=== PATIENT | male | born 1950 | race Caucasian/White ===

== ENCOUNTER → 2017-04-07 | Day surgery (SDC) | payer OTHER ==
[~2017-04-07] VITALS: Ht 193 cm; Wt 124.3 kg
[~2017-04-07] MED LIST: /ESOM40CA OR; /WARF25TA OR; ACET65TA OR; ALL10TAB27 PO; AMLO10TA2 PO; ANDR1.62 SUBD; ASPI81TA83 OR; ATOR1TAB21 PO; AZEL0.055; CEPACOL PO; CETI10TA OR; CIAL20TA PO; CIAL5TAB PO; FISH1000 OR; FLON0.05; HYZAAR PO; KETOROLAC 60 MG/2 ML VIAL (J1885) As Ordered ONE; LIDOCAINE 2% INJ 100 MG/5 ML SDV (FOR ANES.) As Ordered ONE; LOSA100T PO; LR 1,000 ML IV ONE; LR 1,000 ML IV SCH; LR 500 ML IV SCH; METF500T PO; METOCLOPRAMIDE INJ 10MG/2ML VIAL (J2765) IV PRN; MIDAZOLAM INJ 2 MG/2 ML VIAL (J2250) As Ordered ONE; MULT1TAB10 PO; MULTIVIT PO; NAPR500T PO; NORCO, ANEXSIA 5/325MG TABLET (HYDROcodone/ACETAMINOPHEN) PO PRN; OMEP40CA2 PO; ONDANSETRON 4MG/2ML VIAL (J2405) As Ordered ONE; ONDANSETRON 4MG/2ML VIAL (J2405) IV PRN; PERCOCET 5MG/325MG TAB PO PRN; POTA20TA2 OR; PROPOFOL 200 MG/20 ML VIAL As Ordered ONE; ROPIvacaine 0.5% 30 ML INJECTION (J2795) As Ordered ONE; ROSU10TA OR; TRAM50TA2 OR; TUMS500C OR; VITA400C OR; ePHEDrine SULFATE 25 MG/5 ML(5MG/ML) SYRINGE As Ordered ONE; fentaNYL 100 MCG/2 ML INJECTION (J3010) As Ordered ONE; fentaNYL 100 MCG/2 ML INJECTION (J3010) IV PRN
[2017-04-07 18:40] VITALS: BP 145/70
--- NOTE | 2017-04-08 07:11 | RO ---
DATE OF PROCEDURE: 04/07/2017 PREOPERATIVE DIAGNOSES: Left knee osteoarthritis, medial meniscus tear. POSTOPERATIVE DIAGNOSES: Left knee osteoarthritis, medial meniscus tear, lateral meniscus tear, and loose body in the notch. OPERATIVE PROCEDURE: Excision of 6 mm loose body from the notch and partial medial and lateral meniscectomy, joint debridement. SURGEON: Jose Tucker MD PHYSICIAN GYNECOLOGIST: ANESTHESIA: Spinal. ESTIMATED BLOOD LOSS: Minimal. COMPLICATIONS: None. INDICATION: 67-year-old gentleman who has had some persistent knee pain. MRI scan was consistent with a medial meniscus tear and some arthritis. He wished to go ahead with arthroscopic treatment, having failed conservative management. He understood the nature of procedure, risks of bleeding, infection, damage to nerves, vessels, persistent pain, blood clots, among others. He understood that we would not be able to significantly affect is arthritis. He understood the nature of the risks, bleeding, infection, damage to nerves, vessels, persistent pain, blood clots, medical problems, among others. DESCRIPTION OF PROCEDURE: The patient taken to the operating room and placed in supine position after spinal anesthesia was induced. Left lower extremity was prepped and draped in the usual sterile fashion. I then created inferomedial and anterolateral portals after a time-out was performed. The patellofemoral joint was identified. He did have some grade 2 to 3 changes in his trochlea and grade 2 changes on his patella. I proceeded down both gutters, and the medial compartment of the medial meniscus had a complex posterior medial meniscus tear that was resected with a combination of basket punch, 4.2 shaver, back to a stable rim. I also smoothed off any loose flaps on the medial femoral condyle where there was some grade 2 to 3 changes. The notch was identified. The ACL appeared to be unremarkable, although there was a loose body, 6 mm in diameter, that was just adjacent to the ACL and this was retrieved using pituitary. I then proceeded to the lateral compartment and there was a central lateral meniscus tear, but the articular cartilage was more well-preserved. I removed the tear with the shaver. Proceeded back to the patellofemoral joint; removed any thickened plica, irrigated the knee copiously, reexamined the entire joint and removed the instrumentation. Closed the portals with #4-0 nylon suture and injected 30 mL of Naropin and a sterile dressing was applied. Tourniquet was deflated and he taken to recovery room in stable condition. There were no known complications. PLAN: The plan will be routine postop.
== END | disposition home or self-care (01) ==
LOC: M SDC 11:18
PROVIDERS: ATTEND Orthopaedic Surgery
DX: M17.12 Unilateral primary osteoarthritis, left knee (principal); M23.222 Derangement of posterior horn of medial meniscus due to old tear or injury, left knee; M23.262 Derangement of other lateral meniscus due to old tear or injury, left knee; M23.42 Loose body in knee, left knee; E10.9 Type 1 diabetes mellitus without complications; I10 Essential (primary) hypertension; I71.4 Abdominal aortic aneurysm, without rupture; R35.0 Frequency of micturition; I25.10 Atherosclerotic heart disease of native coronary artery without angina pectoris; E78.00 Pure hypercholesterolemia, unspecified; E04.1 Nontoxic single thyroid nodule; K21.9 Gastro-esophageal reflux disease without esophagitis; G47.33 Obstructive sleep apnea (adult) (pediatric); J30.2 Other seasonal allergic rhinitis; Z91.048 Other nonmedicinal substance allergy status; Z79.899 Other long term (current) drug therapy; Z79.4 Long term (current) use of insulin; Z79.84 Long term (current) use of oral hypoglycemic drugs; Z96.651 Presence of right artificial knee joint
CPT/HCPCS: 29880; J0690; J1885; J2250; J2405; J2795; J3010

== ENCOUNTER → 2017-08-07 | Outpatient (CLI) | payer OTHER ==
[~2017-08-07] MED LIST changes: -KETOROLAC 60 MG/2 ML VIAL (J1885) As Ordered ONE; -LIDOCAINE 2% INJ 100 MG/5 ML SDV (FOR ANES.) As Ordered ONE; -LOSA100T PO; +LOSA100T8 PO; -LR 1,000 ML IV ONE; -LR 1,000 ML IV SCH; -LR 500 ML IV SCH; -METF500T PO; +METF500T13 PO; -METOCLOPRAMIDE INJ 10MG/2ML VIAL (J2765) IV PRN; -MIDAZOLAM INJ 2 MG/2 ML VIAL (J2250) As Ordered ONE; -NORCO, ANEXSIA 5/325MG TABLET (HYDROcodone/ACETAMINOPHEN) PO PRN; -ONDANSETRON 4MG/2ML VIAL (J2405) As Ordered ONE; -ONDANSETRON 4MG/2ML VIAL (J2405) IV PRN; -PERCOCET 5MG/325MG TAB PO PRN; -PROPOFOL 200 MG/20 ML VIAL As Ordered ONE; -ROPIvacaine 0.5% 30 ML INJECTION (J2795) As Ordered ONE; -ePHEDrine SULFATE 25 MG/5 ML(5MG/ML) SYRINGE As Ordered ONE; -fentaNYL 100 MCG/2 ML INJECTION (J3010) As Ordered ONE; -fentaNYL 100 MCG/2 ML INJECTION (J3010) IV PRN
--- NOTE | 2017-08-08 20:50 | SLEEPCENT ---
DATE OF PROCEDURE: 08/07/2017 ORDERED BY: Lizeth Rust Nocturnal polysomnography was performed for re-titration of pressure therapy in this patient with difficulty in sleep maintenance and excessive somnolence. For testing, a ResMed Quattro Air full face mask of large size was used, 14 cm of pressure were applied to the circuit and the lights were extinguished. 8 hours and 13 minutes of data were reviewed. There were 282 minutes of sleep identified. Sleep latency was prolonged at 35 minutes, rapid eye movement (REM) latency was normal at 82 minutes. Sleep architecture was fair; it became worse late in the test on bilevel therapy. Overall sleep efficiency was reduced at 57.9%. EKG showed a sinus rhythm with an average heart rate of 56 beats per minute. EEG showed normal waveforms for awake and sleep stages. Respiratory events were fully palliated with continuous positive airway pressure (CPAP) at a pressure of 14. A trial of bilevel positive airway pressure (BiPAP) was performed after 1:00 a.m. in light of some spontaneous arousals. Snoring was seen and spontaneous arousals persisted. Best sleep was seen on a CPAP pressure of 14. There was some limb activity but only one train of 30 events. Limb movement arousal index was borderline at 6. IMPRESSION: Obstructive sleep apnea syndrome (G47.33). RECOMMENDATION: Continued use of CPAP at a pressure of 14 is sufficient to address the patient's respiratory events.
== END ==
LOC: M SLEEP 19:31
PROVIDERS: ATTEND Nurse Practitioner Adult Health
DX: G47.33 Obstructive sleep apnea (adult) (pediatric) (principal)

== ENCOUNTER 2019-04-03 05:42 | Inpatient (IN) | payer MEDICARE, OTHER ==
--- NOTE | 2019-03-19 14:28 | HPE ---
DATE OF ADMISSION: 04/03/2019 ATTENDING PHYSICIAN: Dr. Jose Tucker CHIEF COMPLAINT: Left knee pain and stiffness. HISTORY: This is a pleasant 69-year-old male patient with progressively worsening left knee pain and stiffness. He has failed to improve with conservative management to include injections in his knee. He has pain with weightbearing activities and activities of daily living. X-rays are notable for end-stage degenerative changes of the left knee. Medical optimization pending with his primary doctor, Dr. Mauricio. ALLERGIES: No known drug allergies. Does have difficulties with adhesives. MEDICATIONS: He currently takes metformin 500 mg 1 tablet twice a day, Losartan 25 mg 1 tablet once per day, aspirin 81 mg 1 tablet once per day, multivitamin, amlodipine 10 mg 1 tablet once a day, Cialis 5 mg as directed, atorvastatin 10 mg 1 tablet once per day, Nexium 1 tablet once per day. MEDICAL HISTORY: Includes symptomatic osteoarthritis of the left knee, type 2 diabetes, high blood pressure, and gastric reflux disease. PAST SURGICAL HISTORY: He has had prior lumbar surgery. He has had a right total knee arthroplasty and bilateral knee scopes. FAMILY HISTORY: Hypertension, diabetes, cancer and heart disease. SOCIAL HISTORY: Does not currently smoke. He does use alcohol. He is retired. REVIEW OF SYSTEMS: Denies fever or chills. Denies chest pain, shortness breath or cough. Denies difficulty breathing. Denies abdominal pain. Denies nausea or vomiting. Denies recent upper respiratory infection (URI) or urinary tract infection (UTI) symptoms. Notes persistent pain in the left knee with weightbearing activities. PHYSICAL EXAMINATION: Today reveals an alert, well-nourished, well-developed male patient who ambulates without assist devices. Mood and affect appropriate. He sits comfortably on the exam room table. Neck is supple without adenopathy or jugular venous distention (JVD). Lungs are clear to auscultation without rales or wheeze. Heart: Regular rate and rhythm. Abdomen: Bowel sounds are present. Examination of the left knee reveals the skin to be intact. No erythema, edema or ecchymosis. There is near full range of motion of the knee with irritability at the extremes of range of motion. Stable to varus and valgus stress. The calf is soft and nontender to palpation. He can sensate light touch. LABORATORY DATA: None collected as he had recent blood work and a workup done in November, pending per his primary requests. IMPRESSION: Symptomatic osteoarthritis of the left knee. PLAN: He has consented for a left total knee arthroplasty by Dr. Tucker using the Attune knee rotating platform cruciate retaining. DELILAH
[~2019-04-03] VITALS: Ht 195.6 cm; Wt 120.2 kg
[~2019-04-03 05:42] MED LIST changes: -/ESOM40CA OR; -/WARF25TA OR; -ALL10TAB27 PO; +ALL10TAB28 PO; -AMLO10TA2 PO; +AMLO10TA5 PO; +COUM1TAB18 OR; +CRES10TA32 OR; +MULTCAP PO; +NAPR-837 PO; -NAPR500T PO; +NEXI1CAP3 OR; -ROSU10TA OR
[2019-04-03] MEDS ORDERED: LIDOCAINE 1% MDV 20ML VIAL SQ PRN (06:00)
[2019-04-03] MEDS ORDERED: ceFAZolin SOD 1 GM in D5W MINI-BAG PLUS 50 ML IV ONE (06:00)
[2019-04-03] MEDS ORDERED: LR 1,000 ML IV SCH ×2 (06:00→10:00)
[2019-04-03 06:40] LABS: HEMATOCRIT 45.6 % (42.0-52.0); HEMOGLOBIN 15.4 g/dl (13.5-17.5); MEAN CORPUSCULAR HEMOGLOBIN 29.7 pg (27.0-33.0); MEAN CORPUSCULAR HGB CONC 33.8 g/dl (32.0-36.5); MEAN CORPUSCULAR VOLUME 87.9 fl (80.0-96.0); PLATELET COUNT, AUTOMATED 165 10^3/uL (150-450); RED BLOOD COUNT 5.19 10^6/uL (4.30-6.10); WHITE BLOOD COUNT 5.9 10^3/uL (4.0-10.0)
[2019-04-03] MEDS ORDERED: fentaNYL 100 MCG/2 ML INJECTION (J3010) As Ordered ONE ×2 (06:40→08:30)
[2019-04-03] MEDS ORDERED: MIDAZOLAM INJ 2 MG/2 ML VIAL (J2250) As Ordered ONE ×2 (06:40→08:31)
[2019-04-03] MEDS ORDERED: BUPIVACAINE HCL 0.25% 30 ML VIAL As Ordered ONE (06:48)
[2019-04-03] MEDS ORDERED: BUPIVACAINE HCL 0.25% 10 ML VIAL As Ordered ONE (06:48)
[2019-04-03 06:51] LABS: INR 0.9; PROTHROMBIN TIME 12.2 SECONDS (12.1-14.4)
[2019-04-03] MEDS ORDERED: TRANEXAMIC ACID 100 MG/ML 10ML VIAL As Ordered ONE (06:51)
[2019-04-03] MEDS ORDERED: ceFAZolin 1GM INJ (J0690 PER 500MG) As Ordered ONE (06:51)
[2019-04-03] MEDS ORDERED: BUPIVACAINE LIPOSOME/PF 1.3% 20ML VIAL (13.3MG/ML)(EXPAREL)(C9290 PER1MG) As Ordered ONE (06:52)
[2019-04-03] MEDS ORDERED: EPINEPHrine INJ 1 MG/ML 1ML AMP As Ordered ONE (06:52)
[2019-04-03 07:08] LABS: ALBUMIN 3.8 GM/DL (3.2-5.2); ALT/SGPT 36 U/L (12-78); BILIRUBIN,TOTAL 0.6 MG/DL (0.2-1.0); BLOOD UREA NITROGEN 16 MG/DL (7-18); CALCIUM LEVEL 8.9 MG/DL (8.8-10.2); CARBON DIOXIDE LEVEL 28 MEQ/L (21-32); CHLORIDE LEVEL 107 MEQ/L (98-107); CREATININE FOR GFR 0.85 MG/DL (0.70-1.30); GLOMERULAR FILTRATION RATE > 60.0 (>49); GLUCOSE, FASTING 99 MG/DL (70-100); POTASSIUM SERUM 3.6 MEQ/L (3.5-5.1); SODIUM LEVEL 142 MEQ/L (136-145); TOTAL PROTEIN 7.4 GM/DL (6.4-8.2)
[2019-04-03 07:32] LABS: ERYTHROCYTE SEDIMENTATION RATE 2 mm/hr (0-20)
--- NOTE | 2019-04-03 07:42 | IPN ---
DATE: 04/03/2019 The patient seen and examined. He wished to go ahead with a left total knee arthroplasty. He understands the nature of this, the risks of bleeding, infection, damage to nerves, vessels, persistent pain, wear loosening, blood clots, medical problems, among others. Preop clearance was obtained.
[2019-04-03] MEDS ORDERED: fentaNYL 100 MCG/2 ML INJECTION (J3010) IV ONE (08:00)
[2019-04-03] MEDS ORDERED: MIDAZOLAM INJ 2 MG/2 ML VIAL (J2250) IV ONE (08:00)
[2019-04-03] MEDS ORDERED: diphenhydrAMINE INJ 50MG/ML VIAL (J1200) IV ONE (08:15)
[2019-04-03] MEDS ORDERED: PROPOFOL 500 MG/50 ML VIAL As Ordered ONE ×2 (08:30→08:31)
[2019-04-03] MEDS ORDERED: BUPIVACAINE/DEXTROSE 0.75% 2 ML AMP As Ordered ONE (08:31)
[2019-04-03] MEDS ORDERED: ACETAMINOPHEN TAB 650MG DOSE (2X325MG) PO PRN (10:00)
[2019-04-03] MEDS ORDERED: ONDANSETRON 4MG/2ML VIAL (J2405) IV PRN (10:00)
[2019-04-03] MEDS ORDERED: FLEET ENEMA PR PRN (10:00)
[2019-04-03] MEDS ORDERED: MORPHINE 4 MG/ML 1ML VIAL/SYRINGE (J2270) IV PRN (10:00)
--- NOTE | 2019-04-03 10:31 | RO ---
DATE OF PROCEDURE: 04/03/2019 PREOPERATIVE DIAGNOSIS: Left knee osteoarthritis. POSTOPERATIVE DIAGNOSIS: Left knee osteoarthritis. PROCEDURE: Left total knee arthroplasty using Attune rotating platform cruciate retaining size 8 femur and tibia, the size 5 thickness polyethylene 38 patellar button. SURGEON: Dr. Jose Tucker. STITCHER FEEDER: Latasha Boothe NP ANESTHESIA: Spinal with block ESTIMATED BLOOD LOSS: Less than 50. COMPLICATIONS: None. INDICATIONS: This is a 69-year-old gentleman who is had some persistent left knee pain. He wished to go ahead with surgical treatment. He understood the nature this, the risks of bleeding, infection, damage to nerves or vessels, persistent pain, blood clots, medical problems among others. DESCRIPTION OF PROCEDURE: The patient was taken to operating room and placed in supine position after spinal anesthesia was induced. The left lower extremity was prepped and draped in usual sterile fashion. A tourniquet was inflated. After time-out was performed, I created longitudinal incision over the anterior aspect the knee, performed a medial parapatellar arthrotomy per routine and everted the patella. I used the canal initiating reamer on the femoral side followed by the intramedullary guide, which was pinned in place. Distal femoral cut was made and this was removing about 9 mm of bone and about 5 degrees of valgus. I sized the femur to be an 8. Drill holes were placed at the end of the femur. The cutting block was then placed, size 8 and this was pinned in place and the remaining cuts were made. Excellent appearance was noted of the femur. The tibia was then prepared. The posterior retractor was placed, tibial alignment guide was placed and appropriate alignment valgus and posterior slope. I then cut the proximal tibia, removing the excess bone. Then used a vocational psychologist to be removed soft tissue and osteophytes from either side of the knee. He has a spacer block and a size 5 or 6 was felt to be appropriate for flexion/extension gap stability and was very pleased with this. I did have to do somewhat of a medial release given his varus alignment. I then prepared the tibia and the tibial tray size 8 was secured drilled broached. I also performed the sulcus cut with the guide and then the trial components were inserted with a size 5 polyethylene being selected. The knee was put through a range of motion with the trial components and they fit very nicely. There was no lift off and excellent range of motion was noted. I then freehand cut the patella removing about 7 or 8 mm of bone sized to be a 38. Drill holes were placed drill holes were placed in the end of the femur. The assistant sales center manager prepared the bone cement in the modern technique. Hemostasis was maintained with cautery. I injected the Exparel in the deep tissues. Once the bony surfaces were copiously irrigated and dried, I cemented down the tibial tray, removed excess bone cement. Placed the polyethylene cement on the femoral component, removed excess bone cement and then cemented on the patella and removed excess bone cement. Irrigated copiously. Placed the TXA solution deep in the tissues and then irrigated again. Closed the deep layer with #1-0 Vicryl suture in interrupted fashion followed by running Stratafix suture. The tourniquet was deflated once the cement was hardened. Watertight closure was noted. I irrigated, closed subcu with #2-0 Vicryl and the skin with lamont. Sterile dressing was applied. Tourniquet had been deflated prior. He was taken to recovery room in stable condition. There were no known complications. The plan will be routine postop. The assistant sales center manager was instrumental in holding retractors and assisting in making the distal femoral cut under my direct supervision and mixing the bone cement and assisting in wound closure.
--- NOTE | 2019-04-03 10:38 | REP ---
AP AND LATERAL LEFT KNEE, TWO VIEWS: HISTORY: Postop. The patient is status-post left total knee replacement. There is no acute fracture or dislocation. Subcutaneous air and surgical lamont are present in the overlying soft-tissue. IMPRESSION:The patient is status-post left total knee replacement. There is anatomic alignment. Electronically Signed by Andre Cruz MD 04/03/2019 11:04 A
[2019-04-03 11:03] VITALS: BP 152/80
[2019-04-03] MEDS ORDERED: LIDOCAINE 1% MDV 20ML VIAL ONE (11:26)
[2019-04-03 11:32] VITALS: O2SAT 96
[2019-04-03 11:46] VITALS: BP 150/79
[2019-04-03] MEDS: HumaLOG INSULIN (NovoLOG) PER UNIT SC SCH ×3 (12:00→21:00)
[2019-04-03] MEDS: PERCOCET 5MG/325MG TAB PO PRN ×3 (12:11→20:04)
[2019-04-03 12:40] VITALS: BP 148/79
--- NOTE | 2019-04-03 12:40 | HPEPDOC ---
General Date of Admission Apr 03, 2019 at 05:42 Date of Service: Apr 03, 2019 Attending Physician: Darien Tucker MD Chief Complaint The patient is a 69-year-old male admitted with a reason for visit of Left knee Arthritis. Source: Patient Exam Limitations: No limitations Severity: Moderate History of Present Illness Consultation report. Consultation requested by Dr Tucker Consultation for management of Medical commodities. HPI: 69-year-old male patient with PMH of GEO on CPAP, Hypertension, Thoracic aortic aneurysm 3.2 cm , abdominal aortic aneurysm 3.6 cm being monitored by reducer, pancreatic nodule, thyroid nodule, adrenal nodule all being monitored as an outpatient, diabetes, obesity presented to the hospital with progressively worsening left knee pain and stiffness. He has failed to improve with conservative management to include injections in his knee. He has pain with weightbearing activities and activities of daily living. X-rays are notable for end-stage degenerative changes of the left knee. He underwent elective left total knee arthroplasty. Hospitalist has been consulted for management of his medical commorbidities. He denies any pain or nausea or vomiting. Does not have any cough or chest pain or sob. Home Medications Scheduled Amlodipine Besylate (Amlodipine Besylate) 10 Mg Tab, 10 MG PO DAILY, (Reported) Atorvastatin Calcium (Atorvastatin Calcium) 20 Mg Tab, 20 MG PO DAILY, (Reported) Cetirizine HCl (Cetirizine HCl) 10 Mg Tab, 10 MG PO DAILY, (Reported) Losartan/Hydrochlorothiazide (Hyzaar 100-25 Tablet) 1 Each Tablet, 1 TAB PO DAILY, (Reported) Metformin HCl (Metformin HCl) 500 Mg Tab, 500 MG PO DAILY, (Reported) Multivitamin (Multivitamins) 1 Each Capsule, 1 CAP PO DAILY, (Reported) Omeprazole (Omeprazole) 40 Mg Cap, 40 MG PO DAILY, (Reported) Tadalafil (Cialis) 5 Mg Tab, 5 MG PO DAILY, (Reported) Testosterone (Androgel) 1.62 % Gel, 2 DOSE SUBD DAILYPRN, (Reported) Scheduled PRN Azelastine HCl (Azelastine HCl) 0.15 % Spr, 2 SPRAYS NA PRN PRN for NASAL CONGESTION, (Reported) Allergies Coded Allergies: chlorhexidine (Verified Allergy, Intermediate, rash and itching, 04/03/19) ENVIROMENTAL (Verified Allergy, Unknown, 04/03/19) TAPE (Verified Allergy, Unknown, SENSITIVE, 04/03/19) Past Medical History Medical History GEO on CPAP, Hypertension, Thoracic aortic aneurysm 3.2 cm , abdominal aortic aneurysm 3.6 cm being monitored by reducer, pancreatic nodule, thyroid nodule, adrenal nodule all being monitored as an outpatient, diabetes, obesity , tremors, GERD, hyperlipidemia, Surgical History right total knee replacement, abdominal hernia, gallbladder, L4-s1 spinal surgery, multiple knee arthroscopies and injections. Family History Significant Family History: Hypertension, Other (essential tremors.) Social History * Smoker: former Smoker, quit greater than 1 year Alcohol: Denies Drugs: denies A-FIB/CHADSVASC A-FIB History Current/History of A-Fib/PAF?: No Review of Systems Constitutional: Denies: Chills, Fever, Night Sweats Eyes: Denies: Pain, Vision change ENT: Denies: Head Aches, Ear Pain, Dysphagia Skin: Denies: Rash, Lesions, Breakdown Pulmonary: Denies: Dyspnea, Cough Cardiovascular: Denies: Chest Pain, Palpitations, Orthopnea, Paroxysmal Noc. Dyspnea, Lt Headedness Gastrointestinal: Denies: Nausea, Vomiting, Abdominal Pain, Diarrhea Hematologic: Denies: Bruising, Bleeding Excessively Neurological: Denies: Weakness, Numbness, Change in speech, Confusion Physical Examination General Exam: Positive: Alert, Cooperative, No Acute Distress Eye Exam: Positive: PERRLA, Conjunctiva & lids normal, EOMI; Negative: Sclera icteric ENT Exam: Positive: Atraumatic, Mucous membr. moist/pink, Pharynx Normal Neck Exam: Positive: Supple; Negative: JVD, thyromegaly Chest Exam: Positive: Clear to auscultation, Normal air movement Heart Exam: Positive: Rate Normal, Regular Rhythm, Normal S1, Normal S2; Negative: Murmurs, Rubs Abdomen Exam: Positive: Normal bowel sounds, Soft; Negative: Tenderness, Hepatospenomegaly Extremity Exam: Positive: Normal pulses; Negative: Clubbing, Cyanosis, Edema Skin Exam: Positive: Nl turgor and temperature; Negative: Breakdown, Lesion Vital Signs Vital Signs Date Time Temp Pulse Resp B/P (MAP) Pulse Ox O2 Delivery O2 Flow Rate FiO2 04/03/19 12:11 16 04/03/19 11:32 96 Room Air 04/03/19 10:35 53 150/77 (101) 04/03/19 09:55 96.7 04/03/19 09:40 2 Laboratory Data Labs 24H Laboratory Tests 2 04/03/19 06:07: Nucleated Red Blood Cells % (auto) 0.0, Erythrocyte Sedimentation Rate 2, Prothrombin Time 12.2, Prothromb Time International Ratio 0.90, Anion Gap 7L, Glomerular Filtration Rate > 60.0, Blood Urea Nitrogen 16, Creatinine 0.85, Sodium Level 142, Potassium Level 3.6, Chloride Level 107, Carbon Dioxide Level 28, Calcium Level 8.9, Aspartate Amino Transf (AST/SGOT) 13, Alanine Aminotransferase (ALT/SGPT) 36, Alkaline Phosphatase 72, Total Bilirubin 0.6, Total Protein 7.4, Albumin 3.8, Albumin/Globulin Ratio 1.06 CBC/BMP Laboratory Tests 04/03/19 06:07 Red Blood Count 5.19, Mean Corpuscular Volume 87.9, Mean Corpuscular Hemoglobin 29.7, Mean Corpuscular Hemoglobin Concent 33.8, Red Cell Distribution Width 13.2, Calcium Level 8.9, Aspartate Amino Transf (AST/SGOT) 13, Alanine Aminotransferase (ALT/SGPT) 36, Alkaline Phosphatase 72, Total Bilirubin 0.6, Total Protein 7.4, Albumin 3.8 Assessment/Plan 69-year-old male patient with PMH of GEO on CPAP, Hypertension, Thoracic aortic aneurysm 3.2 cm , abdominal aortic aneurysm 3.6 cm being monitored by reducer, pancreatic nodule, thyroid nodule, adrenal nodule all being monitored as an outpatient, diabetes, obesity presented to the hospital for elective left total knee replacement. Hospitalist consulted for management of medical commorbidities S/P left TKA pain control and dvt prophylaxis as per ortho GEO continue CPAP Hypertension Hold losartan and HCTZ, will continue amlodipine. Diabetes will hold metformin and place on lispro sliding scale Hyperlipidemia continue statin Gerd omeprazole BPH continue home medications Plan / VTE VTE Prophylaxis Ordered?: Yes TERE SWANSON MD Apr 03, 2019 12:40
[2019-04-03] MEDS ORDERED: GLUCOSE 4 GM CHEW TABLET PO PRN (12:45)
[2019-04-03] MEDS ORDERED: GLUCAGON FOR INJ 1 MG VIAL (J1610) SC PRN (12:45)
[2019-04-03] MEDS ORDERED: DEXTROSE 50% 50 ML SYRINGE IV PRN (12:45)
[2019-04-03] MEDS ORDERED: HYZA100T6 PO (12:57)
[2019-04-03 13:48] VITALS: BP 142/74
[2019-04-03] MEDS: MORPHINE 4 MG/ML 1ML VIAL/SYRINGE (J2270) IV PRN ×3 (13:59→22:10)
[2019-04-03] MEDS: ceFAZolin SOD 1 GM in D5W MINI-BAG PLUS 50 ML IV SCH (15:45)
[2019-04-03] MEDS ORDERED: MORPHINE 15 MG SA TAB PO ONE (16:00)
[2019-04-03] MEDS: ATORVASTATIN 20 MG TAB PO SCH (20:02)
[2019-04-03] MEDS: amLODIPine 10 MG TAB PO SCH (20:02)
[2019-04-03 22:00] VITALS: BP 144/79
[2019-04-04] VITALS (7 sets, daily range): BP systolic 128–151; BP diastolic 63–79; O2SAT 98
[2019-04-04] MEDS: ceFAZolin SOD 1 GM in D5W MINI-BAG PLUS 50 ML IV SCH (00:10)
[2019-04-04] MEDS: MORPHINE 4 MG/ML 1ML VIAL/SYRINGE (J2270) IV PRN ×2 (00:11→04:20)
[2019-04-04] MEDS: PERCOCET 5MG/325MG TAB PO PRN ×6 (01:53→22:47)
[2019-04-04] MEDS ORDERED: PERCOCET 5MG/325MG TAB PO PRN (06:15)
[2019-04-04] MEDS ORDERED: ONDANSETRON 4 MG TAB (S0181) PO PRN (06:15)
[2019-04-04 06:21] LABS: HEMATOCRIT 39.3 % (42.0-52.0); HEMOGLOBIN 13.2 g/dl (13.5-17.5); MEAN CORPUSCULAR HEMOGLOBIN 30.1 pg (27.0-33.0); MEAN CORPUSCULAR HGB CONC 33.6 g/dl (32.0-36.5); MEAN CORPUSCULAR VOLUME 89.5 fl (80.0-96.0); PLATELET COUNT, AUTOMATED 138 10^3/uL (150-450); RED BLOOD COUNT 4.39 10^6/uL (4.30-6.10)
[2019-04-04] MEDS ORDERED: MORP15TASA PO (06:54)
[2019-04-04] MEDS ORDERED: XARE10TA PO (06:54)
[2019-04-04] MEDS ORDERED: PERC5TAB12 PO (06:54)
[2019-04-04] MEDS: HumaLOG INSULIN (NovoLOG) PER UNIT SC SCH ×4 (07:30→21:00)
[2019-04-04] MEDS ORDERED: RIVAROXABAN 10 MG TAB (XARELTO) PO SCH ×2 (08:00→18:00)
[2019-04-04] MEDS: MOM 30ML SUSPENSION UDC PO SCH (08:14)
[2019-04-04] MEDS: MIRALAX *UNIT DOSE* 17GM PACKET PO SCH (08:14)
[2019-04-04] MEDS: LOSARTAN 50 MG TAB PO SCH (08:15)
[2019-04-04] MEDS: CETIRIZINE (ZyrTEC) 10 MG TAB PO SCH (08:15)
[2019-04-04] MEDS: OMEPRAZOLE 20 MG CAP PO SCH (08:15)
[2019-04-04] MEDS: MORPHINE 15 MG SA TAB PO SCH ×2 (08:16→21:17)
[2019-04-04] MEDS: ATORVASTATIN 20 MG TAB PO SCH (21:16)
[2019-04-04] MEDS: amLODIPine 10 MG TAB PO SCH (21:17)
--- NOTE | 2019-04-04 21:49 | IPNPDOC ---
Subjective Date Seen The patient was seen on 04/04/19. Subjective Chief Complaint/HPI Pain not well controlled. Trying to work with PT however still unable to do much. No fever or chills, no chest pain or sob, no abdominal pain , nausea or vomiting. Objective Physical Examination General Exam: Positive: Alert, Cooperative, No Acute Distress Eye Exam: Positive: PERRLA, Conjunctiva & lids normal, EOMI; Negative: Sclera icteric ENT Exam: Positive: Atraumatic, Mucous membr. moist/pink, Pharynx Normal Neck Exam: Positive: Supple; Negative: JVD, thyromegaly Chest Exam: Positive: Clear to auscultation, Normal air movement Heart Exam: Positive: Rate Normal, Regular Rhythm, Normal S1, Normal S2; Negative: Murmurs, Rubs Abdomen Exam: Positive: Normal bowel sounds, Soft; Negative: Tenderness, Hepatospenomegaly Extremity Exam: Positive: Normal pulses; Negative: Clubbing, Cyanosis, Edema Skin Exam: Positive: Nl turgor and temperature; Negative: Breakdown, Lesion Assessment /Plan Assessment 69-year-old male patient with PMH of GEO on CPAP, Hypertension, Thoracic aortic aneurysm 3.2 cm , abdominal aortic aneurysm 3.6 cm being monitored by edger tailer, pancreatic nodule, thyroid nodule, adrenal nodule all being monitored as an outpatient, diabetes, obesity presented to the hospital for elective left total knee replacement. Hospitalist consulted for management of medical commorbidities S/P left TKA pain control and dvt prophylaxis as per ortho GEO continue CPAP Hypertension restart losartan, continue amlodipine. restart HCTZ on discharge. Diabetes will hold metformin and place on lispro sliding scale Hyperlipidemia continue statin Gerd omeprazole BPH continue home medications Plan/VTE VTE Prophylaxis Ordered?: Yes VS, I&O, 24H, Fishbone Vital Signs/I&O Vital Signs Date Time Temp Pulse Resp B/P (MAP) Pulse Ox O2 Delivery O2 Flow Rate FiO2 04/04/19 21:17 16 04/04/19 21:17 70 151/65 04/04/19 18:00 98.2 94 04/04/19 08:00 Room Air 04/03/19 09:40 2 I&O- Last 24 Hours up to 6 AM 04/04/19 06:00 Intake Total 4550 ml Output Total 1950 ml Balance 2600 ml Laboratory Data 24H LABS Laboratory Tests 2 04/04/19 05:32: Nucleated Red Blood Cells % (auto) 0.0 04/04/19 06:15: Bedside Glucose (Misc Panel) 142H 04/04/19 11:42: Bedside Glucose (Misc Panel) 133H 04/04/19 16:33: Bedside Glucose (Misc Panel) 173H 04/04/19 20:15: Bedside Glucose (Misc Panel) 175H CBC/BMP Laboratory Tests 04/04/19 05:32 Red Blood Count 4.39, Mean Corpuscular Volume 89.5, Mean Corpuscular Hemoglobin 30.1, Mean Corpuscular Hemoglobin Concent 33.6, Red Cell Distribution Width 13.2 TERE SWANSON MD Apr 04, 2019 21:49
[2019-04-05] MEDS: PERCOCET 5MG/325MG TAB PO PRN ×3 (03:15→11:22)
[2019-04-05 06:00] VITALS: BP 168/72
[2019-04-05 06:39] LABS: BLOOD UREA NITROGEN 10 MG/DL (7-18); CALCIUM LEVEL 8.2 MG/DL (8.8-10.2); CARBON DIOXIDE LEVEL 28 MEQ/L (21-32); CHLORIDE LEVEL 104 MEQ/L (98-107); CREATININE FOR GFR 0.67 MG/DL (0.70-1.30); GLOMERULAR FILTRATION RATE > 60.0 (>49); GLUCOSE, FASTING 139 MG/DL (70-100); POTASSIUM SERUM 3.9 MEQ/L (3.5-5.1); SODIUM LEVEL 138 MEQ/L (136-145)
[2019-04-05] MEDS: HumaLOG INSULIN (NovoLOG) PER UNIT SC SCH (07:30)
[2019-04-05] MEDS: CETIRIZINE (ZyrTEC) 10 MG TAB PO SCH (08:19)
[2019-04-05] MEDS: MOM 30ML SUSPENSION UDC PO SCH (08:19)
[2019-04-05] MEDS: OMEPRAZOLE 20 MG CAP PO SCH (08:19)
[2019-04-05 08:20] VITALS: BP 155/69
[2019-04-05] MEDS: LOSARTAN 50 MG TAB PO SCH (08:20)
[2019-04-05] MEDS: MIRALAX *UNIT DOSE* 17GM PACKET PO SCH (08:20)
[2019-04-05] MEDS: MORPHINE 15 MG SA TAB PO SCH (08:21)
== END 2019-04-05 11:40 | disposition home health service (06) | DRG 470 ==
LOC: M OR 05:42 → MERGE 07:30 → UNMERGE 07:30 → M MS5PR 10:50
PROVIDERS: ADMIT Orthopaedic Surgery; ATTEND Orthopaedic Surgery
PROC: 0SRD0J9 Replacement of Left Knee Joint with Synthetic Substitute, Cemented, Open Approach (ICD-10-PCS; principal; 2019-04-03 07:30)
DX: M17.12 Unilateral primary osteoarthritis, left knee (principal); E11.9 Type 2 diabetes mellitus without complications; K21.9 Gastro-esophageal reflux disease without esophagitis; I10 Essential (primary) hypertension; I71.4 Abdominal aortic aneurysm, without rupture; E04.1 Nontoxic single thyroid nodule; K86.89 Other specified diseases of pancreas; I71.2 Thoracic aortic aneurysm, without rupture; E78.5 Hyperlipidemia, unspecified; J30.9 Allergic rhinitis, unspecified; G47.33 Obstructive sleep apnea (adult) (pediatric); Z96.651 Presence of right artificial knee joint; Z79.82 Long term (current) use of aspirin; Z79.84 Long term (current) use of oral hypoglycemic drugs; Z79.899 Other long term (current) drug therapy; Z88.8 Allergy status to other drugs, medicaments and biological substances; Z91.048 Other nonmedicinal substance allergy status; Z87.891 Personal history of nicotine dependence

== ENCOUNTER → 2022-03-22 | Outpatient (CLI) | payer MEDICARE, BC ==
[~2022-03-22] MED LIST changes: -ALL10TAB28 PO; -AMLO10TA5 PO; +AMLO1TAB25 PO; +CETI-24 PO; +HYZA100T6 PO; +MORP15TASA PO; -OMEP40CA2 PO; +OMEP40CA4 PO; +PERC5TAB12 PO; +XARE10TA PO
== END ==
LOC: M PLAIMG 14:18
PROVIDERS: ATTEND Psychiatry & Neurology Neurology
DX: R26.81 Unsteadiness on feet (principal); G21.8 Other secondary parkinsonism; G25.0 Essential tremor